=== PATIENT | female | born 1985 | race Caucasian/White ===

== ENCOUNTER 2020-03-08 15:22 | Emergency (ER) | payer OTHER, MEDICAID, SELFPAY ==
[2020-03-08 15:31] VITALS: BP 106/67; PULSE 66; RESP 16; TEMP 36.6; O2SAT 100; BMI 20.9
--- NOTE | 2020-03-08 16:02 | DI.CT.S_ITS ---
PROCEDURE: CT HEAD/BRAIN WO CON INDICATIONS: Reported history of micro bleeds with headache. TECHNIQUE: Noncontrast 4.5 mm thick angled axial sections acquired from the foramen magnum to the vertex, with coronal and sagittal reformats. For radiation dose reduction, the following was used: automated exposure control, adjustment of mA and/or kV according to patient size. COMPARISON: None. FINDINGS: Image quality: Excellent. CSF spaces: Basal cisterns are patent. No extra-axial fluid collections. Ventricles are normal in size and shape. Brain: No midline shift. No intracranial masses or hemorrhage. Storey-white matter interface is normal. Skull and face: Calvarium and visualized facial bones are intact, without suspicious lesions. Sinuses: Visualized sinuses and mastoids are clear. IMPRESSION: Normal head CT. Dictated by: Juanjose Meneses M.D. on 03/08/2020 at 16:49 Approved by: Juanjose Meneses M.D. on 03/08/2020 at 16:49
--- NOTE | 2020-03-08 16:19 | ED.NEUROSD ---
HPI - Neuro Symptoms/Deficit General Chief Complaint: Neuro Symptoms/Deficit Stated Complaint: dizzy, headache, pain in arms, numbness in hands Time Seen by Provider: 03/08/20 16:01 Source: patient Mode of arrival: Ambulatory Limitations: no limitations History of Present Illness HPI Narrative: 34-year-old female here for evaluation of multiple symptoms to include dizziness and headache and pain and tingling in her arms and numbness in her hands. She states she has sustained 2 concussions in the past and she feels like that she is having tenderness over 1 of the areas above her left eye were she sustained the concussion. She states that the headache is intermittent. She has had symptoms like this in the past. Has been told that it was a post concussive syndrome. She also states she has been told that she had ?micro bleeds ?in her head after having a MRI. She could not describe this any further than that. She is not on blood thinners. Has not tried any for symptoms prior to arrival On Anticoagulants: No Related Data Allergies Allergy/AdvReac Type Severity Reaction Status Date / Time No Known Drug Allergies Allergy Verified 03/08/20 15:41 Review of Systems Constitutional Constitutional: Reports fatigue, Denies fever(s), Denies frequent falls and Reports headache(s) Eyes Eyes: Denies change in vision ENT Ears, Nose, Mouth, and Throat: Denies dizziness, Reports headache(s) and Denies sore throat Cardiovascular Cardiovascular: Denies chest pain, Denies syncope and Denies dyspnea Respiratory Respiratory: Denies dyspnea Gastrointestinal Gastrointestinal: Denies abdominal pain, Denies nausea and Denies vomiting Genitourinary Genitourinary: Denies dysuria Genitourinary: Denies dysuria Musculoskeletal Musculoskeletal: Denies arthralgias, Denies myalgias and Reports tingling Integumentary/Breasts Skin/Breast: Denies pruritus and Denies rash Neurologic Neurologic: Reports confusion, Denies dizziness, Denies syncope, Denies frequent falls, Reports headache(s), Denies radicular pain and Reports tingling Psychiatric Psychiatric: Reports confusion Endocrine Endocrine: Reports fatigue Patient History Social History Smoking Status: Current every day smoker Smoking Status: Current every day smoker tobacco type: vaping alcohol intake frequency: holidays/special occasions only Substance Use Type: does not use Exam Initial Vital Signs Initial Vital Signs: Vital Signs Temperature 97.8 F 03/08/20 15:31 Pulse Rate 66 03/08/20 15:31 Respiratory Rate 16 03/08/20 15:31 Blood Pressure 106/67 03/08/20 15:31 Pulse Oximetry 100 03/08/20 15:31 Const General: cooperative, comfortable and well developed Limitations: mental status not altered HENMT Head: normal to inspection and normocephalic Resp Effort & Inspection: normal respiratory effort Auscultation: clear to auscultation bilaterally Cardio Rate: regular rate Rhythm: regular rhythm GI Inspection: non-distended Palpation: soft Skin Lesions: no lesions Rashes: no rashes Neuro General: patient alert, patient awake and patient oriented x3 Cranial Nerves: CN's II-XI intact bilaterally Cognition: normal cognition Speech: speech normal Motor: muscle tone normal throughout Sensory Exam: no sensory deficits noted Extrem General: normal to inspection and capillary refill normal Psych Appearance: grossly normal and well kempt Scores GCS Amaya coma scale eye opening: Spontaneous Prescott coma scale verbal response: Orientated [place] coma scale motor response: Obey commands Prescott coma scale total score: 15 Course Orders Ordered: ED Orders 03/08/20 16:02 CT head/brain wo con Stat Vital Signs Vital signs: Vital Signs - 8 hr 03/08/20 15:31 03/08/20 16:28 03/08/20 16:30 Temperature 97.8 F Pulse Rate 66 57 L 56 L Respiratory Rate 16 Blood Pressure 106/67 100/64 Pulse Oximetry 100 98 98 03/08/20 16:48 03/08/20 17:00 03/08/20 17:30 Temperature Pulse Rate 56 L 57 L 54 L Respiratory Rate Blood Pressure 98/63 96/62 96/62 Pulse Oximetry 100 98 98 MDM - Neuro Symptoms/Deficit Imaging Data CT scan - head: Radiologist's Impression: [address] [address] [address] Scan Report Signed Patient: Brenda Chong [facility]#: [id number] : 1985Acct:[id number] Age/Sex: 34 / FDate of Service: 03/08/20 Loc: ED Accession Number: [id number] Procedure: CT head/brain wo con Ordering Provider: Cheo Pedroza D.O. PROCEDURE: CT HEAD/BRAIN WO CON INDICATIONS: Reported history of micro bleeds with headache. TECHNIQUE: Noncontrast 4.5 mm thick angled axial sections acquired from the foramen magnum to the vertex, with coronal and sagittal reformats. For radiation dose reduction, the following was used: automated exposure control, adjustment of mA and/or kV according to patient size. COMPARISON: None. FINDINGS: Image quality: Excellent. CSF spaces: Basal cisterns are patent. No extra-axial fluid collections. Ventricles are normal in size and shape. Brain: No midline shift. No intracranial masses or hemorrhage. Storey-white matter interface is normal. Skull and face: Calvarium and visualized facial bones are intact, without suspicious lesions. Sinuses: Visualized sinuses and mastoids are clear. IMPRESSION: Normal head CT. Dictated by: Juanjose Meneses M.D. on 03/08/2020 at 16:49 Approved by: Juanjose Meneses M.D. on 03/08/2020 at 16:49 [facility] Narrative Medical decision making narrative: Patient has a unremarkable/nonfocal/normal neurologic exam. Her head CT was negative. She has had these symptoms in the past. Low suspicion for CVA or TIA. I feel we can hold on further workup for now. Patient was given return precautions and follow-up instructions. She expressed understanding and agreement. Discharge Plan Departure Patient Disposition: Home Clinical Impression: Headache Qualifiers: Headache type: unspecified Headache chronicity pattern: unspecified pattern Intractability: not intractable Qualified Code(s): R51.9 - Headache, unspecified Discharge Date/Time: 03/08/20 17:44 Instructions: DI for Postconcussion Syndrome Activity Restrictions/Additional Instructions: Recommend that tomorrow you contact your primary provider for follow-up. You can also contact the health human resources file clerk [phone] to help establish a primary doctor in this area if you choose. Continue all of your medications as directed. Return to the emergency department for any new or worsening symptoms
[2020-03-08 16:28] VITALS: PULSE 57; O2SAT 98
[2020-03-08 16:30] VITALS: BP 100/64; PULSE 56; O2SAT 98
[2020-03-08 16:48] VITALS: BP 98/63; PULSE 56; O2SAT 100
[2020-03-08 17:00] VITALS: BP 96/62; PULSE 57; O2SAT 98
[2020-03-08 17:30] VITALS: BP 96/62; PULSE 54; O2SAT 98
== END 2020-03-08 17:44 | disposition home or self-care (01) ==
PROVIDERS: Emergency Provider Emergency Medicine
DX: R51.9 Headache, unspecified (principal); R20.0 Anesthesia of skin; R42 Dizziness and giddiness
CPT/HCPCS: 70450; 99281; 99284

== ENCOUNTER 2020-04-04 09:57 | Emergency (ER) | payer OTHER, MEDICAID, SELFPAY ==
[2020-04-04 10:10] VITALS: BP 93/55; PULSE 69; RESP 14; TEMP 36.7; O2SAT 100; BMI 21.5
[2020-04-04 10:38] LABS: Appearance Urine UA SL CLOUDY; Bacteria Urine None Seen; Bilirubin Urine UA NEGATIVE (NEGATIVE); Color Urine UA YELLOW; Glucose Urine UA NEGATIVE (Negative); Ketones Urine UA NEGATIVE (NEGATIVE); Leukocyte Esterase Urine UA NEGATIVE (NEGATIVE); Nitrite Urine UA NEGATIVE (Negative); Occult Blood Urine UA NEGATIVE (Negative); Protein Urine UA NEGATIVE (Negative); RBC Urine None Seen (0-5/HPF); Specific Gravity Urine UA 1.015 (1.000-1.035); Urobilinogen Urine UA 0.2 E.U./dL (0.2); WBC Urine None Seen (0-5/HPF)
[2020-04-04 10:51] LABS: Amorphous Sediment Urine 3+; Culture Indicated Urine Cult Not Indicated; Squamous Epithelial Cell Urine 5-10 /HPF (0-5/HPF)
[2020-04-04 12:44] VITALS: PULSE 63; O2SAT 99
[2020-04-04 12:45] VITALS: BP 98/63; PULSE 71; RESP 16; O2SAT 98
--- NOTE | 2020-04-04 12:52 | PC.NURSE ---
pt states she feels as if she is out of body watching herself with daily activities and easily distracted hard to stay focused on the moment Pt also c/o generalized body aches tender to the touch
[2020-04-04 14:10] LABS: Add Manual Diff / Slide Review NO; Basophils Absolute Auto 0 /uL (0-100); Basophils Percent Auto 0.4 % (0-2); Eosinophils Absolute Auto 0 /uL (0-450); Eosinophils Percent Auto 0.9 % (2-4); Hematocrit 39.6 % (36-46); Hemoglobin 13.1 g/dL (12.0-16.0); Lymphocytes Absolute Auto 1700 /uL (1100-4500); Lymphocytes Percent Auto 32.1 % (25-40); Mean Corpuscular HGB Conc 33.2 % (30-36); Mean Corpuscular Hemoglobin 30.5 PG (26-34); Mean Corpuscular Volume 91.9 fL (80-100); Monocytes Absolute Auto 500 /uL (0-900); Monocytes Percent Auto 8.6 % (3-14); Neutrophils Absolute Auto 3100 /uL (1500-7000); Platelet Count 179 X10^3/uL (150-400); Red Blood Cell Count 4.31 X10^6/uL (4.0-5.2); Red Cell Distribution Width 13.2 % (11.6-14.8); White Blood Cell Count 5.4 X10^3/uL (4.5-11.0)
[2020-04-04 14:11] LABS: Pregnancy Test Urine Negative (Negative)
[2020-04-04 14:16] LABS: UR Morphine/Opiate cutoff 300 Negative (Negative); Ur Creatinine Normal (Normal); Ur Specific Gravity Normal (Normal); Urine Amphetamines Negative (Negative); Urine Barbiturates Negative (Negative); Urine Benzodiazepines Negative (Negative); Urine Cocaine Negative (Negative); Urine MDMA Negative (Negative); Urine Methadone Negative (Negative); Urine Methamphetamines Negative (Negative); Urine Oxycodone Negative (Negative); Urine Phencyclidine Negative (Negative); Urine Tetrahydrocannabinol Negative (Negative); Urine Tricyclic Antidepressant Negative (Negative); Urine pH Normal (Normal)
[2020-04-04 14:25] LABS: INR 1.1 (0.9-1.3); Prothrombin Time 13.2 SECONDS (10.1-12.7)
[2020-04-04 14:27] LABS: PTT Partial Thromboplastin Tim 30 SECONDS (26.4-36.2)
[2020-04-04 14:29] LABS: Acetaminophen < 10 ug/mL (10-30); Creatine Kinase 79 U/L (30-135); Salicylate < 1.0 mg/dL (<20)
[2020-04-04 14:30] LABS: Alanine Aminotransferase 17 IU/L (<35); Albumin 4.2 g/dL (3.5-5.0); Albumin Globulin Ratio 1.4 (1.0-2.8); Alkaline Phosphatase 40 U/L (38-126); Aspartate Aminotransferase 23 IU/L (14-36); BUN Creatinine Ratio 26.9 (6-22); Bilirubin Total 1.1 mg/dL (0.2-1.3); Blood Urea Nitrogen 14 mg/dL (7-17); Calcium 9.4 mg/dL (8.4-10.2); Carbon Dioxide 29 mmol/L (22-32); Chloride 105 mmol/L (98-107); Estimated Glomerular Filt Rate > 60.0 mL/min (>60); Ethanol (ETOH) < 10 mg/dL; Globulin 3.1 g/dL (1.7-4.1); Glucose 87 mg/dL (70-100); HEMOLYSIS < 15 (0-50); Magnesium 1.8 mg/dL (1.6-2.3); Potassium 4.1 mmol/L (3.4-5.1); Sodium 139 mmol/L (137-145); Total Protein 7.3 g/dL (6.3-8.2)
[2020-04-04 14:41] LABS: Troponin I < 0.012 ng/mL (0.01-0.034)
[2020-04-04 14:42] VITALS: BP 90/60; PULSE 54; RESP 16; O2SAT 100
[2020-04-04 15:23] LABS: Thyroid Stimulating Hormone 0.586 uIU/mL (0.47-4.68)
--- NOTE | 2020-04-04 16:34 | CM.SWNOTE ---
DRIER OPERATOR HELPER Assessment DRIER OPERATOR HELPER - Boat Camp Operator Assessment DRIER OPERATOR HELPER - Boat Camp Operator Assessment Start: 04/04/20 16:21 Freq: Status: Active Protocol: Document 04/04/20 16:21 SELVIN (Rec: 04/04/20 16:34 SELVIN [id number]) DRIER OPERATOR HELPER/Boat Camp Operator Assessment Time Spent with Patient Start date 04/04/20 Visit Start Time 15:10 End date 04/04/20 Visit End Time 15:50 Total time Care Management spent on 40 patient visit-in minutes Mental Health Screening Include Onset, Duration, Intensity Presenting Problem Patient presents to ED for stated concerns of memory loss and feeling dissociated from herself. Patient reports she has been diagnosed with PTSD before and recognizes that dissociation from self is a symptom of PTSD, but is worried because she does not feel like myself. Precipitating Event(s) Patient reports having been at her place of residence and a housemate noticed that she had been forgetting things more recently and asked if patient was OK. Patient recently moved into transitional housing after experiencing homelessness for two years. Patient reports feeling significantly isolated from family and friend group. Patient Strengths Patient expressive motivation for healing Current Behavioral Health Provider(s) None-referrals provided. Include Facility, Provider, Ph. # Psych. Hx Mental Health and Chemical Patient reports feeling sad Dependency and having PTSD. No substance use concerns reported. Family Hx of Behavioral Abuse None reported. Psychiatric Hospitalizations (date(s)/ None reported. location) Psychosocial information & Support Patient is a 34 y/o female who Systems recently moved into transitional housing after experiencing homelessness for 2 years. Patient reports she is isolated from her friend group and family, but does have supportive friends though the transitional housing program that she is a part of. 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 Legal Concerns Legal Matters - Outstanding Issues None reported. Mental Status Orientation (Person/Place/Time) Oriented x3 Stated Mood OK Affect (Congruent with Mood?) Tearful, flat, congruent with mood. Thought Content - Specify/Describe No hallucinations, obsessions, Obsessions, Delusions, Hallucinations or delusions observed or reported. Thought Processes (Yojunsr-Bixpgfan-Ywue Coherent-goal directed Wfhkxctk-Vvswcuxn-Dslwixfsae- Ueheevqhgbhjrq-Qtwlsgw-Gmhjetejvtfb- Thought Blocking) Speech (Fvioeq-Ulhj-Rddfhhv-Rapid-Soft- Normal Loud-Pressured) Motor (Yawgle-Uiiqbkyjr-Yeal-Other) Normal Insight (Tbsr-Vils-Zfec/Limited) Good Judgement (Chct-Xtdm-Vmin/Limited) Good Impulse Control (Adequate-Impaired) Adequate in assessment. Memory (Wmqdyiajv-Livytd-Hkbhhn, Intact for interview. Patient Impaired-Intact) reports she has been forgetting things and forgetting the tasks she's conducting mid-task. Concentration (Intact-Impaired) Intact Attention (Intact-Impaired) Intact Behavior (Appropriate-Inappropriate) Appropriate Risk Assessment Suicidal Ideation (Plan) No Homicidal Ideation (Plan) No Comment Patient denies SI/HI. Intervention Intervention DRIER OPERATOR HELPER meets with patient. Patient discusses hx of PTSD and feeling not like myself. Patient asks for referral to counseling and DRIER OPERATOR HELPER provides referral to [facility] and provides patient with information on process and how to access the services. Plan RA Plan DRIER OPERATOR HELPER updates ED provider Madhavi Silva, who will continue caring for patient while in ED . LAURA Sprague
[2020-04-04 16:36] VITALS: BP 94/60; PULSE 54; RESP 16; O2SAT 100
[2020-04-04 16:44] VITALS: BP 102/59; PULSE 60; O2SAT 98
--- NOTE | 2020-04-04 17:29 | ED_ITS ---
HPI - Neuro Symptoms/Deficit <ALEC Fernandez - Last Filed: 04/04/20 20:00> General Chief Complaint: Neuro Symptoms/Deficit Stated Complaint: Not feeling right, maybe partly mental Time Seen by Provider: 04/04/20 13:12 Source: patient Mode of arrival: Ambulatory Limitations: no limitations History of Present Illness HPI Narrative: The patient is a 34-year-old female current smoker with history of PTSD, anxiety, costochondritis who presents with a chief complaint of not feeling well for the past several years. She states that she has transient chest pain, feels like she is out of body, disassociated symptoms as well as fatigue and not sleeping well. She denies any fevers, nausea vomiting or diarrhea. She states that she has chest pain when she presses on her chest. She denies any falls or trauma. She states she feels as though her skin hurts that everything hurts at times. She has seen her primary care provider was referred to neurology but is having trouble getting to that appointment due to transit issues. She denies any possibility of , denies any drug or alcohol use, denies any thoughts of hurting herself or anybody else. She wonders if her issues are ?mental related. On Anticoagulants: No Related Data Previous Rx's Medication Instructions Recorded ibuprofen 600 mg PO TID PRN #20 tab 04/04/20 Allergies Allergy/AdvReac Type Severity Reaction Status Date / Time amoxicillin [From Augmentin] Allergy Verified 04/04/20 10:12 azithromycin Allergy Verified 04/04/20 10:12 clavulanic acid Allergy Verified 04/04/20 10:12 [From Augmentin] Review of Systems <ALEC Fernandez - Last Filed: 04/04/20 20:00> Review of Systems Narrative: GENERAL: Denies chills, fatigue, malaise, fever, sweats. HEENT: Denies sinus pain, ear pain, sore throat, difficulty swallowing, dizziness. RESPIRATORY: Denies dyspnea, cough, wheezing, hemoptysis, sputum. CARDIOVASCULAR: See HPI GASTROINTESTINAL: Denies nausea, vomiting, abdominal pain, diarrhea, constipation, melena. : Denies dysuria, frequency, incontinence, hematuria, urinary retention. MUSCULOSKELETAL: denies weakness, joint pain, or bony pain SKIN: Denies rash, skin lesions, or other NEUROLOGIC: Denies weakness, headache, numbness, change in speech, confusion, seizures, incoordination. PSYCHIATRIC: see HPI 12 point review of systems is negative except for those stated above Patient History <Madhavi ALEC Silva - Last Filed: 04/04/20 20:00> Social History Smoking Status: Current every day smoker Smoking Status: Current every day smoker tobacco type: vaping alcohol intake frequency: holidays/special occasions only Substance Use Type: does not use Exam <Madhavi ALEC Silva - Last Filed: 04/04/20 20:00> Narrative Exam Narrative: GENERAL: This is a well-nourished, well-developed patient, in no acute distress HEAD: Atraumatic. Normocephalic. No temporal or scalp tenderness. EYES: Pupils equal round and reactive. Extraocular motions intact. No scleral icterus. No injection or drainage. ENT: Nose without bleeding, purulent drainage or septal hematoma. Throat without erythema, tonsillar hypertrophy or exudate. Uvula midline. Airway patent. NECK: Trachea midline. No JVD or lymphadenopathy. Supple, nontender, no meningeal signs. CARDIOVASCULAR: Regular rate and rhythm RESPIRATORY: Clear to auscultation. Breath sounds equal bilaterally. No wheezes, rales, or rhonchi. No cough. No increased respiratory effort. No accessory muscle use. Pain to palpation of chest wall that is varied. GASTROINTESTINAL: Abdomen soft, non-tender, nondistended. No hepato- splenomegaly, or palpable masses. No guarding. EXTREMITIES: No clubbing, cyanosis, or edema. No joint tenderness, effusion, or edema noted. BACK: Nontender without deformity or crepitance. No flank tenderness. NEURO: AOx3. Teary at times. Interactive. Age appropriate. SKIN: No rash or erythema on visible skin Initial Vital Signs Initial Vital Signs: Vital Signs Temperature 98.1 F 04/04/20 10:10 Pulse Rate 69 04/04/20 10:10 Respiratory Rate 14 04/04/20 10:10 Blood Pressure 93/55 L 04/04/20 10:10 Pulse Oximetry 100 04/04/20 10:10 <Felix Pabon MD - Last Filed: 04/05/20 08:14> Initial Vital Signs Initial Vital Signs: Vital Signs Temperature 98.1 F 04/04/20 10:10 Pulse Rate 69 04/04/20 10:10 Respiratory Rate 14 04/04/20 10:10 Blood Pressure 93/55 L 04/04/20 10:10 Pulse Oximetry 100 04/04/20 10:10 Scores <Madhavi KENJI Silva-BC - Last Filed: 04/04/20 20:00> GCS [place] coma scale eye opening: Spontaneous [place] coma scale verbal response: Orientated [place] coma scale motor response: Obey commands [place] coma scale total score: 15 Course <Madhavi RAJEEV SilvaBC - Last Filed: 04/04/20 20:00> Orders Ordered: ED Orders 04/04/20 13:41 EKG-12 Lead Stat 04/04/20 13:42 Consult to [facility] - Digital Project Manager Urgent 04/04/20 14:02 Acetaminophen Stat Complete Blood Count AUTO DIFF Stat Comprehensive Metabolic Panel Stat Ethanol (ETOH) Stat Magnesium Stat Partial Thromboplastin Time Stat Prothrombin Time INR Stat Salicylate Stat Thyroid Stimulating Hormone Stat Troponin & CK Cardiac Panel Stat Vital Signs Vital signs: Vital Signs - 8 hr 04/04/20 12:44 04/04/20 12:45 04/04/20 14:42 Pulse Rate 63 71 54 L Respiratory Rate 16 16 Blood Pressure 98/63 90/60 Pulse Oximetry 99 98 100 04/04/20 16:36 04/04/20 16:44 Pulse Rate 54 L 60 Respiratory Rate 16 Blood Pressure 94/60 102/59 L Pulse Oximetry 100 98 <Felix Pabon MD - Last Filed: 04/05/20 08:14> Orders Ordered: ED Orders 04/04/20 13:41 EKG-12 Lead Stat 04/04/20 13:42 Consult to [facility] Digital Project Manager Urgent 04/04/20 14:02 Acetaminophen Stat Complete Blood Count AUTO DIFF Stat Comprehensive Metabolic Panel Stat Ethanol (ETOH) Stat Magnesium Stat Partial Thromboplastin Time Stat Prothrombin Time INR Stat Salicylate Stat Thyroid Stimulating Hormone Stat Troponin & CK Cardiac Panel Stat Vital Signs Vital signs: Vital Signs - 8 hr 04/04/20 12:44 04/04/20 12:45 04/04/20 14:42 Pulse Rate 63 71 54 L Respiratory Rate 16 16 Blood Pressure 98/63 90/60 Pulse Oximetry 99 98 100 04/04/20 16:36 04/04/20 16:44 Pulse Rate 54 L 60 Respiratory Rate 16 Blood Pressure 94/60 102/59 L Pulse Oximetry 100 98 MDM - Neuro Symptoms/Deficit <RAQUEL FernandezP- - Last Filed: 04/04/20 20:00> Lab Data Attestation: I reviewed the patient's lab results. Result diagrams: 04/04/20 14:02 04/04/20 14:02 Labs: Lab Results 04/04/20 04/04/20 04/04/20 Range/Units 10:17 10:17 10:17 WBC (4.5-11.0) X10^3/uL RBC (4.0-5.2) X10^6/uL Hgb (12.0-16.0) g/dL Hct (36-46) % MCV (80-100) fL MCH (26-34) PG MCHC (30-36) % RDW (11.6-14.8) % Plt Count (150-400) X10^3/uL Neut % (Auto) (50-75) % Lymph % (Auto) (25-40) % [place] % (Auto) (3-14) % Eos % (Auto) (2-4) % Baso % (Auto) (0-2) % Neut # (Auto) (7434-9099) /uL Lymph # (Auto) (2863-4892) /uL [place] # (Auto) (0-900) /uL Eos # (Auto) (0-450) /uL Baso # (Auto) (0-100) /uL PT (10.1-12.7) SECONDS INR (0.9-1.3) APTT (26.4-36.2) SECONDS Sodium (137-145) mmol/L Potassium (3.4-5.1) mmol/L Chloride (98-107) mmol/L Carbon Dioxide (22-32) mmol/L BUN (7-17) mg/dL Creatinine (0.52-1.04) mg/dL Estimated GFR (>60) mL/min BUN/Creatinine Ratio (6-22) Glucose (70-100) mg/dL Calcium (8.4-10.2) mg/dL Magnesium (1.6-2.3) mg/dL Total Bilirubin (0.2-1.3) mg/dL AST (14-36) IU/L ALT (<35) IU/L Alkaline Phosphatase (38-126) U/L Total Creatine Kinase (30-135) U/L CK-MB (CK-2) CK-MB (CK-2) Rel Index Troponin I (0.01-0.034) ng/mL Total Protein (6.3-8.2) g/dL Albumin (3.5-5.0) g/dL Globulin (1.7-4.1) g/dL Albumin/Globulin Ratio (1.0-2.8) TSH (0.47-4.68) uIU/mL Urine Color Yellow Urine Appearance Sl cloudy Urine pH 7.0 (4.5-8.0) Ur Specific Home 1.015 (1.000-1.035) Urine Protein Negative (Negative) Urine Glucose (UA) Negative (Negative) g/dL Urine Ketones Negative (NEGATIVE) Urine Occult Blood Negative (Negative) Urine Nitrate Negative (Negative) Urine Bilirubin Negative (NEGATIVE) Urine Urobilinogen 0.2 (0.2) E.U./dL Ur Leukocyte Esterase Negative (NEGATIVE) Urine RBC None seen (0-5/HPF) Urine WBC None seen (0-5/HPF) Ur Squamous Epith Cells 5-10 /hpf H (0-5/HPF) Amorphous Sediment 3+ Urine Bacteria None seen (None) Ur Culture Indicated? Cult not indicated Urine Test Negative (Negative) Salicylates (<20) mg/dL U Opiates 300ng/mL cut Negative (Negative) Ur Oxycodone Screen Negative (Negative) Urine Methadone Screen Negative (Negative) Acetaminophen (10-30) ug/mL Ur Barbiturates Screen Negative (Negative) U Tricyclic Antidepress Negative (Negative) Ur Phencyclidine Scrn Negative (Negative) Ur Amphetamines Screen Negative (Negative) U Methamphetamines Scrn Negative (Negative) Ur MDMA Scrn (Ecstasy) Negative (Negative) U Benzodiazepines Scrn Negative (Negative) Urine Cocaine Screen Negative (Negative) U Marijuana (THC) Screen Negative (Negative) Ethyl Alcohol ( - 10) mg/dL 04/04/20 04/04/20 04/04/20 Range/Units 14:02 14:02 14:02 WBC 5.4 (4.5-11.0) X10^3/uL RBC 4.31 (4.0-5.2) X10^6/uL Hgb 13.1 (12.0-16.0) g/dL Hct 39.6 (36-46) % MCV 91.9 (80-100) fL MCH 30.5 (26-34) PG MCHC 33.2 (30-36) % RDW 13.2 (11.6-14.8) % Plt Count 179 (150-400) X10^3/uL Neut % (Auto) 58.0 (50-75) % Lymph % (Auto) 32.1 (25-40) % [place] % (Auto) 8.6 (3-14) % Eos % (Auto) 0.9 L (2-4) % Baso % (Auto) 0.4 (0-2) % Neut # (Auto) 3100 (2748-5921) /uL Lymph # (Auto) 1700 (6594-9452) /uL [place] # (Auto) 500 (0-900) /uL Eos # (Auto) 0 (0-450) /uL Baso # (Auto) 0 (0-100) /uL PT 13.2 H (10.1-12.7) SECONDS INR 1.1 (0.9-1.3) APTT 30 (26.4-36.2) SECONDS Sodium (137-145) mmol/L Potassium (3.4-5.1) mmol/L Chloride (98-107) mmol/L Carbon Dioxide (22-32) mmol/L BUN (7-17) mg/dL Creatinine (0.52-1.04) mg/dL Estimated GFR (>60) mL/min BUN/Creatinine Ratio (6-22) Glucose (70-100) mg/dL Calcium (8.4-10.2) mg/dL Magnesium (1.6-2.3) mg/dL Total Bilirubin (0.2-1.3) mg/dL AST (14-36) IU/L ALT (<35) IU/L Alkaline Phosphatase (38-126) U/L Total Creatine Kinase 79 (30-135) U/L CK-MB (CK-2) TNP CK-MB (CK-2) Rel Index TNP Troponin I < 0.012 (0.01-0.034) ng/mL Total Protein (6.3-8.2) g/dL Albumin (3.5-5.0) g/dL Globulin (1.7-4.1) g/dL Albumin/Globulin Ratio (1.0-2.8) TSH (0.47-4.68) uIU/mL Urine Color Urine Appearance Urine pH (4.5-8.0) Ur Specific Home (1.000-1.035) Urine Protein (Negative) Urine Glucose (UA) (Negative) g/dL Urine Ketones (NEGATIVE) Urine Occult Blood (Negative) Urine Nitrate (Negative) Urine Bilirubin (NEGATIVE) Urine Urobilinogen (0.2) E.U./dL Ur Leukocyte Esterase (NEGATIVE) Urine RBC (0-5/HPF) Urine WBC (0-5/HPF) Ur Squamous Epith Cells (0-5/HPF) Amorphous Sediment Urine Bacteria (None) Ur Culture Indicated? Urine Test (Negative) Salicylates < 1.0 (<20) mg/dL U Opiates 300ng/mL cut (Negative) Ur Oxycodone Screen (Negative) Urine Methadone Screen (Negative) Acetaminophen < 10 L (10-30) ug/mL Ur Barbiturates Screen (Negative) U Tricyclic Antidepress (Negative) Ur Phencyclidine Scrn (Negative) Ur Amphetamines Screen (Negative) U Methamphetamines Scrn (Negative) Ur MDMA Scrn (Ecstasy) (Negative) U Benzodiazepines Scrn (Negative) Urine Cocaine Screen (Negative) U Marijuana (THC) Screen (Negative) Ethyl Alcohol ( - 10) mg/dL 04/04/20 04/04/20 Range/Units 14:02 14:02 WBC (4.5-11.0) X10^3/uL RBC (4.0-5.2) X10^6/uL Hgb (12.0-16.0) g/dL Hct (36-46) % MCV (80-100) fL MCH (26-34) PG MCHC (30-36) % RDW (11.6-14.8) % Plt Count (150-400) X10^3/uL Neut % (Auto) (50-75) % Lymph % (Auto) (25-40) % [place] % (Auto) (3-14) % Eos % (Auto) (2-4) % Baso % (Auto) (0-2) % Neut # (Auto) (8177-7845) /uL Lymph # (Auto) (3743-4453) /uL [place] # (Auto) (0-900) /uL Eos # (Auto) (0-450) /uL Baso # (Auto) (0-100) /uL PT (10.1-12.7) SECONDS INR (0.9-1.3) APTT (26.4-36.2) SECONDS Sodium 139 (137-145) mmol/L Potassium 4.1 (3.4-5.1) mmol/L Chloride 105 (98-107) mmol/L Carbon Dioxide 29 (22-32) mmol/L BUN 14 (7-17) mg/dL Creatinine 0.52 (0.52-1.04) mg/dL Estimated GFR > 60.0 (>60) mL/min BUN/Creatinine Ratio 26.9 H (6-22) Glucose 87 (70-100) mg/dL Calcium 9.4 (8.4-10.2) mg/dL Magnesium 1.8 (1.6-2.3) mg/dL Total Bilirubin 1.1 (0.2-1.3) mg/dL AST 23 (14-36) IU/L ALT 17 (<35) IU/L Alkaline Phosphatase 40 (38-126) U/L Total Creatine Kinase (30-135) U/L CK-MB (CK-2) CK-MB (CK-2) Rel Index Troponin I (0.01-0.034) ng/mL Total Protein 7.3 (6.3-8.2) g/dL Albumin 4.2 (3.5-5.0) g/dL Globulin 3.1 (1.7-4.1) g/dL Albumin/Globulin Ratio 1.4 (1.0-2.8) TSH 0.586 (0.47-4.68) uIU/mL Urine Color Urine Appearance Urine pH (4.5-8.0) Ur Specific Home (1.000-1.035) Urine Protein (Negative) Urine Glucose (UA) (Negative) g/dL Urine Ketones (NEGATIVE) Urine Occult Blood (Negative) Urine Nitrate (Negative) Urine Bilirubin (NEGATIVE) Urine Urobilinogen (0.2) E.U./dL Ur Leukocyte Esterase (NEGATIVE) Urine RBC (0-5/HPF) Urine WBC (0-5/HPF) Ur Squamous Epith Cells (0-5/HPF) Amorphous Sediment Urine Bacteria (None) Ur Culture Indicated? Urine Test (Negative) Salicylates (<20) mg/dL U Opiates 300ng/mL cut (Negative) Ur Oxycodone Screen (Negative) Urine Methadone Screen (Negative) Acetaminophen (10-30) ug/mL Ur Barbiturates Screen (Negative) U Tricyclic Antidepress (Negative) Ur Phencyclidine Scrn (Negative) Ur Amphetamines Screen (Negative) U Methamphetamines Scrn (Negative) Ur MDMA Scrn (Ecstasy) (Negative) U Benzodiazepines Scrn (Negative) Urine Cocaine Screen (Negative) U Marijuana (THC) Screen (Negative) Ethyl Alcohol < 10 ( - 10) mg/dL ECG Data Attestation: I personally reviewed and interpreted this ECG as follows: Interpretation: Sinus bradycardia. Ventricular rate 52. P.r. interval 178. QRS 82. Viewed by Dr Pabon MDM Narrative Medical decision making narrative: The patient is a 34-year-old female who presents with a chief complaint of multiple complaints including fatigue, not feeling well, chest pain with pressure fatigue waking up early. These complains of an ongoing for the last several years, worse recently. Her EKG has no acute findings, initial troponin is negative. Hypothyroid was consider, rule out TSH. Anemia is consider, ruled out with CBC. Her electrolytes are grossly within no rmal limits. I discussed at length the importance of following up with primary care provider, given her coordination issues as well as concerned about out of body experiences, Isaak SANCHEZ plan to evaluate patient and gave her resources including [facility] as well as [employer] phone number. She is safe to go home, declines an x-ray given that she believe she has a costochondritis exacerbation. However she is oxygenating well, no cough etcetera.. Willing to give her a continuation of ibuprofen. Discussed at length coming to the ER for any acute concerns as well as primary care her provider. Patient has no questions or concerns upon discharge and states understanding of return precautions as well as follow-up care. <Felix Pabon MD - Last Filed: 04/05/20 08:14> Lab Data Labs: Lab Results 04/04/20 04/04/20 04/04/20 Range/Units 10:17 10:17 10:17 WBC (4.5-11.0) X10^3/uL RBC (4.0-5.2) X10^6/uL Hgb (12.0-16.0) g/dL Hct (36-46) % MCV (80-100) fL MCH (26-34) PG MCHC (30-36) % RDW (11.6-14.8) % Plt Count (150-400) X10^3/uL Neut % (Auto) (50-75) % Lymph % (Auto) (25-40) % [place] % (Auto) (3-14) % Eos % (Auto) (2-4) % Baso % (Auto) (0-2) % Neut # (Auto) (7522-0540) /uL Lymph # (Auto) (1410-1200) /uL [place] # (Auto) (0-900) /uL Eos # (Auto) (0-450) /uL Baso # (Auto) (0-100) /uL PT (10.1-12.7) SECONDS INR (0.9-1.3) APTT (26.4-36.2) SECONDS Sodium (137-145) mmol/L Potassium (3.4-5.1) mmol/L Chloride (98-107) mmol/L Carbon Dioxide (22-32) mmol/L BUN (7-17) mg/dL Creatinine (0.52-1.04) mg/dL Estimated GFR (>60) mL/min BUN/Creatinine Ratio (6-22) Glucose (70-100) mg/dL Calcium (8.4-10.2) mg/dL Magnesium (1.6-2.3) mg/dL Total Bilirubin (0.2-1.3) mg/dL AST (14-36) IU/L ALT (<35) IU/L Alkaline Phosphatase (38-126) U/L Total Creatine Kinase (30-135) U/L CK-MB (CK-2) CK-MB (CK-2) Rel Index Troponin I (0.01-0.034) ng/mL Total Protein (6.3-8.2) g/dL Albumin (3.5-5.0) g/dL Globulin (1.7-4.1) g/dL Albumin/Globulin Ratio (1.0-2.8) TSH (0.47-4.68) uIU/mL Urine Color Yellow Urine Appearance Sl cloudy Urine pH 7.0 (4.5-8.0) Ur Specific Home 1.015 (1.000-1.035) Urine Protein Negative (Negative) Urine Glucose (UA) Negative (Negative) g/dL Urine Ketones Negative (NEGATIVE) Urine Occult Blood Negative (Negative) Urine Nitrate Negative (Negative) Urine Bilirubin Negative (NEGATIVE) Urine Urobilinogen 0.2 (0.2) E.U./dL Ur Leukocyte Esterase Negative (NEGATIVE) Urine RBC None seen (0-5/HPF) Urine WBC None seen (0-5/HPF) Ur Squamous Epith Cells 5-10 /hpf H (0-5/HPF) Amorphous Sediment 3+ Urine Bacteria None seen (None) Ur Culture Indicated? Cult not indicated Urine Test Negative (Negative) Salicylates (<20) mg/dL U Opiates 300ng/mL cut Negative (Negative) Ur Oxycodone Screen Negative (Negative) Urine Methadone Screen Negative (Negative) Acetaminophen (10-30) ug/mL Ur Barbiturates Screen Negative (Negative) U Tricyclic Antidepress Negative (Negative) Ur Phencyclidine Scrn Negative (Negative) Ur Amphetamines Screen Negative (Negative) U Methamphetamines Scrn Negative (Negative) Ur MDMA Scrn (Ecstasy) Negative (Negative) U Benzodiazepines Scrn Negative (Negative) Urine Cocaine Screen Negative (Negative) U Marijuana (THC) Screen Negative (Negative) Ethyl Alcohol ( - 10) mg/dL 04/04/20 04/04/20 04/04/20 Range/Units 14:02 14:02 14:02 WBC 5.4 (4.5-11.0) X10^3/uL RBC 4.31 (4.0-5.2) X10^6/uL Hgb 13.1 (12.0-16.0) g/dL Hct 39.6 (36-46) % MCV 91.9 (80-100) fL MCH 30.5 (26-34) PG MCHC 33.2 (30-36) % RDW 13.2 (11.6-14.8) % Plt Count 179 (150-400) X10^3/uL Neut % (Auto) 58.0 (50-75) % Lymph % (Auto) 32.1 (25-40) % [place] % (Auto) 8.6 (3-14) % Eos % (Auto) 0.9 L (2-4) % Baso % (Auto) 0.4 (0-2) % Neut # (Auto) 3100 (4099-1088) /uL Lymph # (Auto) 1700 (2825-3089) /uL [place] # (Auto) 500 (0-900) /uL Eos # (Auto) 0 (0-450) /uL Baso # (Auto) 0 (0-100) /uL PT 13.2 H (10.1-12.7) SECONDS INR 1.1 (0.9-1.3) APTT 30 (26.4-36.2) SECONDS Sodium (137-145) mmol/L Potassium (3.4-5.1) mmol/L Chloride (98-107) mmol/L Carbon Dioxide (22-32) mmol/L BUN (7-17) mg/dL Creatinine (0.52-1.04) mg/dL Estimated GFR (>60) mL/min BUN/Creatinine Ratio (6-22) Glucose (70-100) mg/dL Calcium (8.4-10.2) mg/dL Magnesium (1.6-2.3) mg/dL Total Bilirubin (0.2-1.3) mg/dL AST (14-36) IU/L ALT (<35) IU/L Alkaline Phosphatase (38-126) U/L Total Creatine Kinase 79 (30-135) U/L CK-MB (CK-2) TNP CK-MB (CK-2) Rel Index TNP Troponin I < 0.012 (0.01-0.034) ng/mL Total Protein (6.3-8.2) g/dL Albumin (3.5-5.0) g/dL Globulin (1.7-4.1) g/dL Albumin/Globulin Ratio (1.0-2.8) TSH (0.47-4.68) uIU/mL Urine Color Urine Appearance Urine pH (4.5-8.0) Ur Specific Home (1.000-1.035) Urine Protein (Negative) Urine Glucose (UA) (Negative) g/dL Urine Ketones (NEGATIVE) Urine Occult Blood (Negative) Urine Nitrate (Negative) Urine Bilirubin (NEGATIVE) Urine Urobilinogen (0.2) E.U./dL Ur Leukocyte Esterase (NEGATIVE) Urine RBC (0-5/HPF) Urine WBC (0-5/HPF) Ur Squamous Epith Cells (0-5/HPF) Amorphous Sediment Urine Bacteria (None) Ur Culture Indicated? Urine Test (Negative) Salicylates < 1.0 (<20) mg/dL U Opiates 300ng/mL cut (Negative) Ur Oxycodone Screen (Negative) Urine Methadone Screen (Negative) Acetaminophen < 10 L (10-30) ug/mL Ur Barbiturates Screen (Negative) U Tricyclic Antidepress (Negative) Ur Phencyclidine Scrn (Negative) Ur Amphetamines Screen (Negative) U Methamphetamines Scrn (Negative) Ur MDMA Scrn (Ecstasy) (Negative) U Benzodiazepines Scrn (Negative) Urine Cocaine Screen (Negative) U Marijuana (THC) Screen (Negative) Ethyl Alcohol ( - 10) mg/dL 04/04/20 04/04/20 Range/Units 14:02 14:02 WBC (4.5-11.0) X10^3/uL RBC (4.0-5.2) X10^6/uL Hgb (12.0-16.0) g/dL Hct (36-46) % MCV (80-100) fL MCH (26-34) PG MCHC (30-36) % RDW (11.6-14.8) % Plt Count (150-400) X10^3/uL Neut % (Auto) (50-75) % Lymph % (Auto) (25-40) % [place] % (Auto) (3-14) % Eos % (Auto) (2-4) % Baso % (Auto) (0-2) % Neut # (Auto) (4546-1409) /uL Lymph # (Auto) (6383-9732) /uL [place] # (Auto) (0-900) /uL Eos # (Auto) (0-450) /uL Baso # (Auto) (0-100) /uL PT (10.1-12.7) SECONDS INR (0.9-1.3) APTT (26.4-36.2) SECONDS Sodium 139 (137-145) mmol/L Potassium 4.1 (3.4-5.1) mmol/L Chloride 105 (98-107) mmol/L Carbon Dioxide 29 (22-32) mmol/L BUN 14 (7-17) mg/dL Creatinine 0.52 (0.52-1.04) mg/dL Estimated GFR > 60.0 (>60) mL/min BUN/Creatinine Ratio 26.9 H (6-22) Glucose 87 (70-100) mg/dL Calcium 9.4 (8.4-10.2) mg/dL Magnesium 1.8 (1.6-2.3) mg/dL Total Bilirubin 1.1 (0.2-1.3) mg/dL AST 23 (14-36) IU/L ALT 17 (<35) IU/L Alkaline Phosphatase 40 (38-126) U/L Total Creatine Kinase (30-135) U/L CK-MB (CK-2) CK-MB (CK-2) Rel Index Troponin I (0.01-0.034) ng/mL Total Protein 7.3 (6.3-8.2) g/dL Albumin 4.2 (3.5-5.0) g/dL Globulin 3.1 (1.7-4.1) g/dL Albumin/Globulin Ratio 1.4 (1.0-2.8) TSH 0.586 (0.47-4.68) uIU/mL Urine Color Urine Appearance Urine pH (4.5-8.0) Ur Specific Home (1.000-1.035) Urine Protein (Negative) Urine Glucose (UA) (Negative) g/dL Urine Ketones (NEGATIVE) Urine Occult Blood (Negative) Urine Nitrate (Negative) Urine Bilirubin (NEGATIVE) Urine Urobilinogen (0.2) E.U./dL Ur Leukocyte Esterase (NEGATIVE) Urine RBC (0-5/HPF) Urine WBC (0-5/HPF) Ur Squamous Epith Cells (0-5/HPF) Amorphous Sediment Urine Bacteria (None) Ur Culture Indicated? Urine Test (Negative) Salicylates (<20) mg/dL U Opiates 300ng/mL cut (Negative) Ur Oxycodone Screen (Negative) Urine Methadone Screen (Negative) Acetaminophen (10-30) ug/mL Ur Barbiturates Screen (Negative) U Tricyclic Antidepress (Negative) Ur Phencyclidine Scrn (Negative) Ur Amphetamines Screen (Negative) U Methamphetamines Scrn (Negative) Ur MDMA Scrn (Ecstasy) (Negative) U Benzodiazepines Scrn (Negative) Urine Cocaine Screen (Negative) U Marijuana (THC) Screen (Negative) Ethyl Alcohol < 10 ( - 10) mg/dL Discharge Plan Departure Patient Disposition: Home Clinical Impression: Acute costochondritis, Chest pain, atypical Fatigue Qualifiers: Fatigue type: unspecified Qualified Code(s): R53.83 - Other fatigue Discharge Date/Time: 04/04/20 16:44 Instructions: DI for Atypical Chest Pain, DI for Costochondritis, DI for Fat igue Activity Restrictions/Additional Instructions: Thank you for trusting us with your care today. As discussed, please follow-up with the [facility], your primary care provider and the resources provided by our social services director. Our social services director line is [phone] I sent a prescription of ibuprofen to [facility]. This is an NSAID. Do not combine it with other NSAIDs such as Aleve. I suggest taking it with some food, as it can irritate your stomach. Overall your lab work came back well today. Please come back emergency department for any acute concerns Prescriptions: New ibuprofen 600 mg tablet 600 mg PO TID PRN (Reason: pain) Qty: 20 RF: 0 Stand Alone Forms: Work Release Note <Felix Pabon MD - Last Filed: 04/05/20 08:14> [facility] I was immediately available in the department for consultation. This documentation has been reviewed and I agree with assessment and plan. Supervised by Felix Pabon MD
== END 2020-04-04 16:44 | disposition home or self-care (01) ==
PROVIDERS: Emergency Medicine; Emergency Provider Nurse Practitioner Family
DX: M94.0 Chondrocostal junction syndrome [Tietze] (principal); R07.89 Other chest pain; R53.83 Other fatigue
CPT/HCPCS: 36415; 80053; 80305; 80320; 80329; 81001; 81025; 82550; 83735; 84443; 84484; 85025; 85610; 85730; 93005; 99283; 99284; G0480

== ENCOUNTER → 2020-07-11 07:25 | Outpatient (CLI) | payer OTHER, MEDICAID, SELFPAY | PROVIDERS: Visit Provider Nurse Practitioner Family | DX: N34.3 Urethral syndrome, unspecified (principal) | CPT/HCPCS: 81002; 81025; 87077; 87086; 87186 ==

== ENCOUNTER → 2020-08-21 14:48 | Outpatient (CLI) | payer OTHER, MEDICAID, SELFPAY ==
[2020-08-21] MEDS: COVID-19 VACC #1, MRNA(MOD) 100 MCG/0.5 ML VIAL IM (15:01)
== END ==
PROVIDERS: Visit Provider Internal Medicine
DX: Z23 Encounter for immunization (principal)
CPT/HCPCS: 0011A; 91301

== ENCOUNTER 2020-08-31 18:41 | Emergency (ER) | payer OTHER, MEDICAID, SELFPAY ==
[2020-08-31 19:08] VITALS: BP 100/66; PULSE 69; RESP 18; TEMP 37.1; O2SAT 98; BMI 21.5
--- NOTE | 2020-08-31 19:59 | PC.NURSE ---
Pt state has history of thrombocytopenia, states went to walk in clinic for new joint pain and headache, states the walk in clinic thought she had petechiae on her upper thighs. Patient has multiple tiny light red raised bumps on bilateral thigh. states the joint pain in gradually getting worse.
[2020-08-31 20:06] LABS: Add Manual Diff / Slide Review NO; Basophils Absolute Auto 0 /uL (0-100); Basophils Percent Auto 0.6 % (0-2); Eosinophils Absolute Auto 100 /uL (0-450); Eosinophils Percent Auto 2.8 % (2-4); Hematocrit 39.6 % (36-46); Lymphocytes Absolute Auto 1600 /uL (1100-4500); Lymphocytes Percent Auto 35.2 % (25-40); Mean Corpuscular HGB Conc 32.7 % (30-36); Mean Corpuscular Volume 91.6 fL (80-100); Monocytes Absolute Auto 500 /uL (0-900); Monocytes Percent Auto 10.5 % (3-14); Neutrophils Absolute Auto 2300 /uL (1500-7000); Neutrophils Percent Auto 50.9 % (50-75); Platelet Count 169 X10^3/uL (150-400); Red Blood Cell Count 4.33 X10^6/uL (4.0-5.2); Red Cell Distribution Width 12.7 % (11.6-14.8); White Blood Cell Count 4.5 X10^3/uL (4.5-11.0)
[2020-08-31 20:10] LABS: Alanine Aminotransferase 15 IU/L (<35); Albumin 4.6 g/dL (3.5-5.0); Albumin Globulin Ratio 1.5 (1.0-2.8); Alkaline Phosphatase 50 U/L (38-126); Aspartate Aminotransferase 25 IU/L (14-36); BUN Creatinine Ratio 24.5 (6-22); Bilirubin Total 0.7 mg/dL (0.2-1.3); Blood Urea Nitrogen 12 mg/dL (7-17); Calcium 9.7 mg/dL (8.4-10.2); Carbon Dioxide 28 mmol/L (22-32); Chloride 103 mmol/L (98-107); Estimated Glomerular Filt Rate > 60.0 mL/min (>60); Glucose 78 mg/dL (70-100); HEMOLYSIS < 15 (0-50); Potassium 3.7 mmol/L (3.4-5.1); Sodium 139 mmol/L (137-145); Total Protein 7.6 g/dL (6.3-8.2)
--- NOTE | 2020-08-31 20:47 | ED_ITS ---
HPI - Headache General Chief Complaint: Headache Stated Complaint: joint pain, head aches, causing eye pain Time Seen by Provider: 08/31/20 20:47 Source: patient Mode of arrival: Ambulatory Limitations: no limitations History of Present Illness HPI Narrative: This is a 34-year-old patient who comes to emergency department sent from the walk-in clinic. She was told that they were concerned that she had petechiae on her legs. She has a history of ITP and she was sent here for labs as are unable to obtain them quickly. Patient has been having some headaches, some joint pain and some eye discomfort. She states that is not her main concern today. She does not wish to really go through evaluation for these concerns. Her main concern was that she was sent for evaluation for possible ATP or low platelets. Patient states that she has not required plasmapheresis or steroids in the past. She does not believe she has required any specific treatment that she is able to relay. She denies any other current concerns. Patient is a little bit tearful, she states that this is not her favorite place to me she does not really wish to be spending her day here in the emergency department. She does not have any other concerns currently. Related Data Previous Rx's Medication Instructions Recorded ibuprofen 600 mg PO TID PRN #20 tab 04/04/20 fluconazole 150 mg tablet 150 mg PO Q3D #2 tab 07/11/20 Allergies Allergy/AdvReac Type Severity Reaction Status Date / Time amoxicillin [From Augmentin] Allergy Verified 08/09/20 12:38 azithromycin Allergy Verified 08/09/20 12:38 clavulanic acid Allergy Verified 08/09/20 12:38 [From Augmentin] Review of Systems Review of Systems ROS Unobtainable: All systems reviewed & are unremarkable except as noted in HPI and below Patient History Medical History No significant medical problems Social History Smoking Status: Current some day smoker Smoking Status: Current some day smoker tobacco type: vaping alcohol intake frequency: holidays/special occasions only Substance Use Type: does not use Exam Narrative Exam Narrative: GENERAL: Alert and oriented x three, thin, well-appearing female in mild distress. Patient does become tearful at one point stating she is frustrated being here in the department today. HEENT: Head normocephalic, atraumatic, EOMI, pupils reactive, face symmetric, moist mucous membranes NECK: Supple, full range of motion CARDIOVASCULAR: Regular rate and rhythm without murmurs, rubs or gallops. RESPIRATORY: Breath sounds equal bilaterally, no wheezes rales or rhonchi. ABDOMEN: Soft, nontender. Normoactive bowel sounds all 4 quadrants. No guarding or rebound, rigidity, no mass : No CVA tenderness EXTREMITIES: Normal range of motion, no clubbing or edema. Neurovascularly intact NEUROLOGICAL: Cranial nerves II through XII grossly intact. Moving all extremities SKIN: Warm, dry, no petechiae noted, no rashes. Patient does have some small these lesions on her lower extremities on the upper thighs consistent with either ingrown hairs or a keratosis pilaris. There is no erythema, warmth or other skin changes appreciated. Initial Vital Signs Initial Vital Signs: Vital Signs Temperature 98.7 F 08/31/20 19:08 Pulse Rate 69 08/31/20 19:08 Respiratory Rate 18 08/31/20 19:08 Blood Pressure 100/66 08/31/20 19:08 Pulse Oximetry 98 08/31/20 19:08 Course Orders Ordered: ED Orders 08/31/20 19:45 Complete Blood Count AUTO DIFF Stat Comprehensive Metabolic Panel Stat Vital Signs Vital signs: Vital Signs - 8 hr 08/31/20 19:08 Temperature 98.7 F Pulse Rate 69 Respiratory Rate 18 Blood Pressure 100/66 Pulse Oximetry 98 MDM - Headache Lab Data Attestation: I reviewed the patient's lab results. Result diagrams: 08/31/20 19:45 08/31/20 19:45 Labs: Lab Results 08/31/20 08/31/20 Range/Units 19:45 19:45 WBC 4.5 (4.5-11.0) X10^3/uL RBC 4.33 (4.0-5.2) X10^6/uL Hgb 13.0 (12.0-16.0) g/dL Hct 39.6 (36-46) % MCV 91.6 (80-100) fL MCH 30.0 (26-34) PG MCHC 32.7 (30-36) % RDW 12.7 (11.6-14.8) % Plt Count 169 (150-400) X10^3/uL Neut % (Auto) 50.9 (50-75) % Lymph % (Auto) 35.2 (25-40) % [place] % (Auto) 10.5 (3-14) % Eos % (Auto) 2.8 (2-4) % Baso % (Auto) 0.6 (0-2) % Neut # (Auto) 2300 (3560-0441) /uL Lymph # (Auto) 1600 (9207-9572) /uL [place] # (Auto) 500 (0-900) /uL Eos # (Auto) 100 (0-450) /uL Baso # (Auto) 0 (0-100) /uL Sodium 139 (137-145) mmol/L Potassium 3.7 (3.4-5.1) mmol/L Chloride 103 (98-107) mmol/L Carbon Dioxide 28 (22-32) mmol/L BUN 12 (7-17) mg/dL Creatinine 0.49 L (0.52-1.04) mg/dL Estimated GFR > 60.0 (>60) mL/min BUN/Creatinine Ratio 24.5 H (6-22) Glucose 78 (70-100) mg/dL Calcium 9.7 (8.4-10.2) mg/dL Total Bilirubin 0.7 (0.2-1.3) mg/dL AST 25 (14-36) IU/L ALT 15 (<35) IU/L Alkaline Phosphatase 50 (38-126) U/L Total Protein 7.6 (6.3-8.2) g/dL Albumin 4.6 (3.5-5.0) g/dL Globulin 3.0 (1.7-4.1) g/dL Albumin/Globulin Ratio 1.5 (1.0-2.8) Discharge Plan Departure Patient Disposition: Home Clinical Impression: Condition not found Activity Restrictions/Additional Instructions: Your labs today are reassuring. Your platelet count is 169 today, your prior in April of 2020 was 179 and this is he normal range platelet count. Your hemoglobin and white blood cell count are also in normal range. Please return if you have any other new or concerning symptoms, if you have ecchymosis or bruising that occurs spontaneously, spontaneous bleeding, signs of very small bruises such as petechiae, bleeding for your gums, or other spontaneous bleeding. Prescriptions: No Action fluconazole [Diflucan] 150 mg tablet 150 mg PO Q3D Qty: 2 RF: 0 ibuprofen 600 mg tablet 600 mg PO TID PRN (Reason: pain) Qty: 20 RF: 0
[2020-08-31 21:10] VITALS: BP 104/68; PULSE 55; RESP 17; O2SAT 99
== END 2020-08-31 21:10 | disposition home or self-care (01) ==
PROVIDERS: Emergency Provider Emergency Medicine
DX: R51.9 Headache, unspecified (principal)
CPT/HCPCS: 36415; 80053; 85025; 99283

== ENCOUNTER → 2020-09-19 15:36 | Outpatient (CLI) | payer OTHER, MEDICAID, SELFPAY ==
[2020-09-19] MEDS: COVID-19 VACC #2, MRNA(MOD) 100 MCG/0.5 ML VIAL IM (15:43)
== END ==
PROVIDERS: Visit Provider Internal Medicine
DX: Z23 Encounter for immunization (principal)
CPT/HCPCS: 0012A; 91301

== ENCOUNTER → 2020-10-10 07:27 | Outpatient (CLI) | payer OTHER, MEDICAID, SELFPAY | PROVIDERS: Visit Provider Physician Assistant | DX: N34.3 Urethral syndrome, unspecified (principal) | CPT/HCPCS: 87077; 87086; 87186 ==

== ENCOUNTER 2020-10-11 11:55 | Emergency (ER) | payer OTHER, MEDICAID, SELFPAY ==
[2020-10-11] VITALS (8 sets, daily range): BP systolic 89–113; BP diastolic 54–60; PULSE 81–101; RESP 15–24; TEMP 39.1; O2SAT 94–100; BMI 21.1
[2020-10-11 12:59] LABS: Add Manual Diff / Slide Review NO; Basophils Absolute Auto 0 /uL (0-100); Basophils Percent Auto 0.3 % (0-2); Eosinophils Absolute Auto 0 /uL (0-450); Hematocrit 41.3 % (36-46); Hemoglobin 13.5 g/dL (12.0-16.0); Lymphocytes Absolute Auto 900 /uL (1100-4500); Lymphocytes Percent Auto 7.9 % (25-40); Mean Corpuscular HGB Conc 32.8 % (30-36); Mean Corpuscular Hemoglobin 29.8 PG (26-34); Mean Corpuscular Volume 90.9 fL (80-100); Monocytes Absolute Auto 1500 /uL (0-900); Monocytes Percent Auto 13.3 % (3-14); Neutrophils Absolute Auto 9100 /uL (1500-7000); Neutrophils Percent Auto 78.5 % (50-75); Platelet Count 149 X10^3/uL (150-400); Red Blood Cell Count 4.54 X10^6/uL (4.0-5.2); Red Cell Distribution Width 12.6 % (11.6-14.8); White Blood Cell Count 11.6 X10^3/uL (4.5-11.0)
--- NOTE | 2020-10-11 13:02 | ED_ITS ---
HPI - Abdominal Pain General Chief Complaint: Urogenital-Female Stated Complaint: states kidney infection, antibiotics not working Time Seen by Provider: 10/11/20 12:59 Source: patient Mode of arrival: Ambulatory Limitations: no limitations History of Present Illness HPI narrative: Patient is a young 34-year-old female who presents with fever and left flank pain. She has had symptoms of UTI ongoing for about 1 week she was started on Cipro 2 days ago but states that Cipro usually does not work for her. She has culture and sensitivity returning which shows resistant to ciprofloxacin on 07/11/2020 culture from yesterday is not yet returned. She continues with fever of 102 here in the emergency department increased left flank pain. She is noted to be hypotensive is however she states that her blood pressure is normally in the 90s. She has some nausea no significant vomiting no abdominal pain. She generally feels weak and fatigued. MD complaint: flank pain (Left) Onset (ago): day(s) Pain Consistency: constant Radiation: none Migration to: no migration Relieving factors: nothing Related Data Previous Rx's Medication Instructions Recorded ibuprofen 600 mg PO TID PRN #20 tab 04/04/20 fluconazole 150 mg tablet 150 mg PO Q3D #2 tab 07/11/20 ciprofloxacin HCl 500 mg tablet 500 mg PO BID 7 Days #14 tab 10/10/20 phenazopyridine 200 mg tablet 200 mg PO TID 2 Days #6 tab 10/10/20 nitrofurantoin monohyd/m-cryst 100 mg PO BID #14 cap 10/11/20 [Macrobid] Allergies Allergy/AdvReac Type Severity Reaction Status Date / Time amoxicillin [From Augmentin] Allergy Verified 10/11/20 12:01 azithromycin Allergy Verified 10/11/20 12:01 clavulanic acid Allergy Verified 10/11/20 12:01 [From Augmentin] Review of Systems Review of Systems Narrative: GENERAL: + chills, +fatigue, +malaise, +fever HEENT: Denies sinus pain, ear pain, sore throat, difficulty swallowing, neck pain RESPIRATORY: Denies dyspnea, cough, wheezing, hemoptysis, sputum. CARDIOVASCULAR: Denies chest pain, palpitations, orthopnea, edema GASTROINTESTINAL: Denies nausea, vomiting, abdominal pain, diarrhea, constipation, melena. : See HPI MUSCULOSKELETAL: Denies weakness, joint pain, or bony pain SKIN: No rash, no erythema, no pruritus NEUROLOGIC: Denies weakness, dizziness, headache, numbness, change in speech, confusion PSYCHIATRIC: No concerning psychosocial issues. 12 point review of systems is negative except for those stated above and HPI Patient History Medical History No significant medical problems Social History Smoking Status: Current some day smoker Smoking Status: Current some day smoker tobacco type: vaping alcohol intake frequency: holidays/special occasions only Substance Use Type: does not use Exam Initial Vital Signs Initial Vital Signs: Vital Signs Temperature 102.4 F H 10/11/20 12:00 Pulse Rate 101 H 10/11/20 12:00 Respiratory Rate 15 10/11/20 12:00 Blood Pressure 89/54 L 10/11/20 12:00 Pulse Oximetry 100 10/11/20 12:00 GENERAL: 34-year-old female appears well and in no acute distress. HEENT: Head atraumatic,EOMI, pupils reactive, face symmetric, moist mucous membranes CARDIOVASCULAR: Regular rate and rhythm without murmurs, rubs or gallops. RESPIRATORY: Breath sounds equal bilaterally, no wheezes rales or rhonchi. ABDOMEN: Soft, nontender. Normoactive bowel sounds all 4 quadrants. No guarding or rebound : Mild left CVA tenderness EXTREMITIES: Normal range of motion, no clubbing or edema. Neurovascularly intact NEUROLOGICAL: Alert and oriented x4.Normal gait and speech. SKIN: Warm, dry, no laceration, no petechiae, no rashes or lesions. Course Orders Ordered: ED Orders 10/11/20 12:06 RT Consult Eval and Treat Now 10/11/20 12:31 EKG-12 Lead Stat 10/11/20 12:40 Blood Culture Stat Complete Blood Count AUTO DIFF Stat Comprehensive Metabolic Panel Stat Lipase Stat Partial Thromboplastin Time Stat Procalcitonin Stat Prothrombin Time INR Stat 10/11/20 12:53 Lactate (Lactic Acid) Stat 10/11/20 12:58 Ictotest Urine Stat Urine Microscopic Stat Discontinued Medications Sodium Chloride (Normal Saline 0.9%) 1,000 mls @ 1,000 mls/hr IV BOLUS ONE Stop: 10/11/20 13:04 Last Infusion: 10/11/20 14:47 Dose: 0 mls/hr Documented by: Admin: 10/11/20 13:06 Dose: 1,000 mls/hr Documented by: SHANTELLE Sodium Chloride (Normal Saline 0.9%) 1,000 mls @ 1,000 mls/hr IV BOLUS ONE Stop: 10/11/20 14:08 Last Admin: 10/11/20 13:32 Dose: Not Given Documented by: SHANTELLE Ceftriaxone Sodium/Dextrose (Rocephin) 1 gm in 50 mls @ 100 mls/hr IV NOW ONE Stop: 10/11/20 13:38 Last Infusion: 10/11/20 14:46 Dose: 0 mls/hr Documented by: Admin: 10/11/20 13:33 Dose: 100 mls/hr Documented by: SHANTELLE Ketorolac Tromethamine (Ketorolac 30 Mg/Ml Vial) 15 mg IV NOW ONE Stop: 10/11/20 13:10 Last Admin: 10/11/20 13:30 Dose: 15 mg Documented by: SHANTELLE Ondansetron HCl (Ondansetron 4 Mg/2 Ml Inj) 4 mg IV NOW ONE Stop: 10/11/20 13:10 Last Admin: 10/11/20 13:29 Dose: 4 mg Documented by: SHANTELLE Vital Signs Vital signs: Vital Signs - 8 hr 10/11/20 12:00 10/11/20 12:34 10/11/20 12:49 Temperature 102.4 F H Pulse Rate 101 H 98 H 95 H Respiratory Rate 15 22 19 Blood Pressure 89/54 L 113/60 Pulse Oximetry 100 99 99 10/11/20 13:00 10/11/20 13:30 10/11/20 14:00 Temperature Pulse Rate 92 H 90 87 Respiratory Rate 22 22 24 Blood Pressure 105/57 L 104/58 L 100/56 L Pulse Oximetry 100 99 94 10/11/20 14:30 10/11/20 15:00 Temperature Pulse Rate 87 81 Respiratory Rate 23 19 Blood Pressure 94/55 L 92/60 Pulse Oximetry 94 98 MDM - Abdominal Pain Lab Data Attestation: I reviewed the patient's lab results. Result diagrams: 10/11/20 12:40 10/11/20 12:40 Labs: Lab Results 05/10/11/20 10/11/20 Range/Units 12:40 12:40 12:40 WBC 11.6 H (4.5-11.0) X10^3/uL RBC 4.54 (4.0-5.2) X10^6/uL Hgb 13.5 (12.0-16.0) g/dL Hct 41.3 (36-46) % MCV 90.9 (80-100) fL MCH 29.8 (26-34) PG MCHC 32.8 (30-36) % RDW 12.6 (11.6-14.8) % Plt Count 149 L (150-400) X10^3/uL Neut % (Auto) 78.5 H (50-75) % Lymph % (Auto) 7.9 L (25-40) % [place] % (Auto) 13.3 (3-14) % Eos % (Auto) 0.0 L (2-4) % Baso % (Auto) 0.3 (0-2) % Neut # (Auto) 9100 H (4623-6986) /uL Lymph # (Auto) 900 L (6689-9308) /uL [place] # (Auto) 1500 H (0-900) /uL Eos # (Auto) 0 (0-450) /uL Baso # (Auto) 0 (0-100) /uL PT 18.0 H (10.1-12.7) SECONDS INR 1.6 H (0.9-1.3) APTT 32 (26.4-36.2) SECONDS Sodium 134 L (137-145) mmol/L Potassium 3.7 (3.4-5.1) mmol/L Chloride 97 L (98-107) mmol/L Carbon Dioxide 29 (22-32) mmol/L BUN 10 (7-17) mg/dL Creatinine 0.70 (0.52-1.04) mg/dL Estimated GFR > 60.0 (>60) mL/min BUN/Creatinine Ratio 14.3 (6-22) Glucose 116 H (70-100) mg/dL Lactate (0.7-2.1) mmol/L Calcium 9.2 (8.4-10.2) mg/dL Total Bilirubin 2.3 H (0.2-1.3) mg/dL AST 17 (14-36) IU/L ALT 11 (<35) IU/L Alkaline Phosphatase 45 (38-126) U/L Total Protein 7.8 (6.3-8.2) g/dL Albumin 4.4 (3.5-5.0) g/dL Globulin 3.4 (1.7-4.1) g/dL Albumin/Globulin Ratio 1.3 (1.0-2.8) Lipase 61 (23-300) U/L Procalcitonin 0.12 (<0.5) ng/mL Ur Bilirubin Confirm (Negative) Urine RBC (0-5/HPF) Urine WBC (0-5/HPF) Ur Squamous Epith Cells (0-5/HPF) Urine Bacteria (None) Ur Culture Indicated? Micro UA Comment 10/11/20 10/11/20 Range/Units 12:53 12:58 WBC (4.5-11.0) X10^3/uL RBC (4.0-5.2) X10^6/uL Hgb (12.0-16.0) g/dL Hct (36-46) % MCV (80-100) fL MCH (26-34) PG MCHC (30-36) % RDW (11.6-14.8) % Plt Count (150-400) X10^3/uL Neut % (Auto) (50-75) % Lymph % (Auto) (25-40) % [place] % (Auto) (3-14) % Eos % (Auto) (2-4) % Baso % (Auto) (0-2) % Neut # (Auto) (6111-5797) /uL Lymph # (Auto) (8160-2491) /uL [place] # (Auto) (0-900) /uL Eos # (Auto) (0-450) /uL Baso # (Auto) (0-100) /uL PT (10.1-12.7) SECONDS INR (0.9-1.3) APTT (26.4-36.2) SECONDS Sodium (137-145) mmol/L Potassium (3.4-5.1) mmol/L Chloride (98-107) mmol/L Carbon Dioxide (22-32) mmol/L BUN (7-17) mg/dL Creatinine (0.52-1.04) mg/dL Estimated GFR (>60) mL/min BUN/Creatinine Ratio (6-22) Glucose (70-100) mg/dL Lactate 1.0 (0.7-2.1) mmol/L Calcium (8.4-10.2) mg/dL Total Bilirubin (0.2-1.3) mg/dL AST (14-36) IU/L ALT (<35) IU/L Alkaline Phosphatase (38-126) U/L Total Protein (6.3-8.2) g/dL Albumin (3.5-5.0) g/dL Globulin (1.7-4.1) g/dL Albumin/Globulin Ratio (1.0-2.8) Lipase (23-300) U/L Procalcitonin (<0.5) ng/mL Ur Bilirubin Confirm Negative (Negative) Urine RBC 1-5/hpf (0-5/HPF) Urine WBC 10-30/hpf H (0-5/HPF) Ur Squamous Epith Cells 5-10 /hpf H (0-5/HPF) Urine Bacteria Many (>30) H (None) Ur Culture Indicated? Cult not indicated Micro UA Comment Point of care testing: Point of Care Testing Test Results Negative Urine Dip Bedside Urine Glucose Negative Bedside Urine Bilirubin + 1 Bedside Urine Ketone - Negative Urine Specific [place] 1.015 Bedside Urine Occult Blood +/- Bedside Urine pH 6.5 Bedside Urine Protein +/- 15 Bedside Urine Urobilinogen 2+ 4mg Bedside Urine Nitrite + Positive Bedside Urine Leukocytes +/- 15 Esterase ECG Data Attestation: I personally reviewed and interpreted this ECG as follows: Interpretation: Sinus rhythm rate 94 p.r. interval 130 QRS [address] changes T-wave inversion [facility] Narrative Medical decision making narrative: Patient has mild leukocytosis with right flank pain with obvious UTI and pyelonephritis. She states that her normal blood pressure is in the 90s it does improve with IV fluids. She is given 1 dose of IV Rocephin she has an allergy to penicillins. She also is complaining of a mild headache which she says she frequently gets when she is on Cipro. Her headache pain improved with Toradol. She has no meningeal signs and no focal deficits. Will start her on Macrobid and await cultures. Prior culture in 07/11/2020 actually does show resistance to Rocephin and multiple other drugs but sensitivity to Macrobid. Discharge Plan Departure Patient Disposition: Home Clinical Impression: UTI (urinary tract infection) Qualifiers: Urinary tract infection type: acute pyelonephritis Qualified Code(s): N10 - Acute pyelonephritis Instructions: DI for Kidney Infection Activity Restrictions/Additional Instructions: *You have been diagnosed with pyelonephritis *What to do: Increase fluid intake *Continue to take medications as directed Stop taking Cipro Keflex 500 mg 2 times a day for 7 days--> SENT TO [facility] *Follow up with your primary care provider in 2-3 days *Return to ER if you should have increasing fever, back pain, or any new, worsening or concerning symptoms Prescriptions: New nitrofurantoin monohyd/m-cryst [Macrobid] 100 mg capsule 100 mg PO BID Qty: 14 RF: 0 No Action fluconazole [Diflucan] 150 mg tablet 150 mg PO Q3D Qty: 2 RF: 0 ciprofloxacin HCl 500 mg tablet 500 mg PO BID 7 Days Qty: 14 RF: 0 phenazopyridine [Pyridium] 200 mg tablet 200 mg PO TID 2 Days Qty: 6 RF: 0 ibuprofen 600 mg tablet 600 mg PO TID PRN (Reason: pain) Qty: 20 RF: 0 Referrals: [facility] [Outside] Miscellaneous,Doctor, [Primary Care Provider] -
[2020-10-11 13:04] LABS: INR 1.6 (0.9-1.3)
[2020-10-11 13:06] LABS: PTT Partial Thromboplastin Tim 32 SECONDS (26.4-36.2)
[2020-10-11] MEDS: SODIUM CHLORIDE 0.9% 1,000 ML 1000 ML IV (13:06)
[2020-10-11 13:08] LABS: Alanine Aminotransferase 11 IU/L (<35); Albumin 4.4 g/dL (3.5-5.0); Albumin Globulin Ratio 1.3 (1.0-2.8); Alkaline Phosphatase 45 U/L (38-126); Aspartate Aminotransferase 17 IU/L (14-36); BUN Creatinine Ratio 14.3 (6-22); Bilirubin Total 2.3 mg/dL (0.2-1.3); Blood Urea Nitrogen 10 mg/dL (7-17); Calcium 9.2 mg/dL (8.4-10.2); Carbon Dioxide 29 mmol/L (22-32); Chloride 97 mmol/L (98-107); Estimated Glomerular Filt Rate > 60.0 mL/min (>60); Globulin 3.4 g/dL (1.7-4.1); Glucose 116 mg/dL (70-100); HEMOLYSIS < 15 (0-50); Lipase 61 U/L (23-300); Potassium 3.7 mmol/L (3.4-5.1); Sodium 134 mmol/L (137-145); Total Protein 7.8 g/dL (6.3-8.2)
[2020-10-11 13:25] LABS: Procalcitonin 0.12 ng/mL (<0.5)
[2020-10-11] MEDS: ONDANSETRON 4 MG/2 ML INJ IV (13:29)
[2020-10-11] MEDS: KETOROLAC 30 MG/ML VIAL 15 MG IV (13:30)
[2020-10-11] MEDS: CEFTRIAXONE 1 GM/50 ML FROZ.PIGGY IV (13:33)
[2020-10-11 13:45] LABS: Ictotest Urine Negative (Negative); RBC Urine 1-5/HPF (0-5/HPF); Squamous Epithelial Cell Urine 5-10 /HPF (0-5/HPF); WBC Urine 10-30/HPF (0-5/HPF)
[2020-10-11 13:46] LABS: Bacteria Urine Many (>30)
[2020-10-11 13:47] LABS: Culture Indicated Urine Cult Not Indicated
== END 2020-10-11 15:24 | disposition home or self-care (01) ==
PROVIDERS: Emergency Provider Emergency Medicine
DX: N10 Acute pyelonephritis (principal); N39.0 Urinary tract infection, site not specified; R10.9 Unspecified abdominal pain
CPT/HCPCS: 36415; 80053; 81003; 81015; 81025; 83605; 83690; 84145; 85025; 85610; 85730; 87040; 93005; 93010; 96365; 96375; 99284; J1885; J2405

== ENCOUNTER → 2022-04-30 19:05 | Outpatient (CLI) | payer OTHER, MEDICAID, SELFPAY ==
[2022-04-30 20:26] LABS: Influenza A - CEPHEID Flu A NEGATIVE (NEGATIVE); Influenza B - CEPHEID Flu B NEGATIVE (NEGATIVE); Respiratory Syncytial Virus Negative (Negative)
[2022-04-30 20:27] LABS: COVID-19 CEPHEID 4-PLEX PCR Negative (Negative)
== END ==
PROVIDERS: Visit Provider Nurse Practitioner Family
DX: R09.81 Nasal congestion (principal); Z20.822 Contact with and (suspected) exposure to COVID-19
CPT/HCPCS: 0241U

== ENCOUNTER → 2023-02-09 07:51 | Outpatient (CLI) | payer OTHER, MEDICAID, SELFPAY ==
[2023-02-09 08:34] LABS: COVID-19 CEPHEID 4-PLEX PCR Negative (Negative); Influenza A - CEPHEID Flu A NEGATIVE (NEGATIVE); Influenza B - CEPHEID Flu B NEGATIVE (NEGATIVE); Respiratory Syncytial Virus Negative (Negative)
== END ==
PROVIDERS: Visit Provider Physician Assistant
DX: R05.9 Cough, unspecified (principal); R09.81 Nasal congestion; R51.9 Headache, unspecified; R53.81 Other malaise; R53.83 Other fatigue; Z20.822 Contact with and (suspected) exposure to COVID-19
CPT/HCPCS: 0241U; C9803

== ENCOUNTER 2024-03-23 19:09 | Emergency (ER) | payer OTHER, SELFPAY ==
[2024-03-23 19:43] VITALS: BP 127/75; PULSE 76; RESP 18; TEMP 36.6; O2SAT 99
--- NOTE | 2024-03-24 01:50 | ED.RECABL ---
HPI - Recheck/Abnormal Lab/Rx General Chief Complaint: Recheck/Abnormal Lab/Rx Stated Complaint: exploding head episodes bipolar insomnia Source: patient Mode of arrival: Ambulatory History of Present Illness HPI narrative: Patient left without being seen by provider Related Data Previous Rx's Medication Instructions Recorded ibuprofen 600 mg tablet 600 mg PO TID PRN pain #20 tabs 04/04/20 sumatriptan succinate 50 mg tablet See Rx Instructions PO .COMPLEX #2 01/23/23 tabs Allergies Allergy/AdvReac Type Severity Reaction Status Date / Time Benzodiazepines Allergy Unknown unknown Verified 03/23/24 19:52 amoxicillin [From Augmentin] Allergy Verified 03/23/24 19:52 azithromycin Allergy Verified 03/23/24 19:52 clavulanic acid Allergy Verified 03/23/24 19:52 [From Augmentin] ketamine Allergy unknown Verified 03/23/24 19:52 naval oranges Allergy Severe Anaphylaxis Uncoded 03/23/24 19:52 Patient History Medical History No significant medical problems Social History Smoking Status: Current some day smoker Smoking Status: Current some day smoker tobacco type: vaping alcohol intake frequency: holidays/special occasions only Substance Use Type: does not use Exam Initial Vital Signs Initial Vital Signs: Vital Signs Temperature 98 F 03/23/24 19:43 Pulse Rate 76 03/23/24 19:43 Respiratory Rate 18 03/23/24 19:43 Blood Pressure 127/75 03/23/24 19:43 Pulse Oximetry 99 03/23/24 19:43 Oxygen Delivery Method Room Air 03/23/24 19:43 Course Vital Signs Vital signs: Vital Signs - 8 hr 03/23/24 19:43 Temperature 98 F Pulse Rate 76 Respiratory Rate 18 Blood Pressure 127/75 Pulse Oximetry 99 Oxygen Delivery Method Room Air Discharge Plan Departure Patient Disposition: Left Without Being Seen Clinical Impression: Patient left after triage Prescriptions: No Action sumatriptan succinate 50 mg tablet See Rx Instructions PO .COMPLEX Qty: 2 0RF Rx Instructions: take 1 tab at onset of headache; if no relief may repeat 1 tab after at least 2 hrs ibuprofen 600 mg tablet 600 mg PO TID PRN (Reason: pain) Qty: 20 0RF Stand Alone Forms: Patient Portal/API
== END 2024-03-23 19:57 | disposition left against medical advice (07) ==
PROVIDERS: Emergency Provider Emergency Medicine
CPT/HCPCS: 99281

== ENCOUNTER → 2024-07-19 17:56 | Outpatient (CLI) | payer OTHER, SELFPAY ==
[2024-07-19 20:27] LABS: Urine N gonorrhoeae NOT DETECTED
[2024-07-19 20:38] LABS: Urine Chlamydia NOT DETECTED
== END ==
PROVIDERS: Visit Provider Student in an Organized Health Care Education/Training Program
DX: N89.8 Other specified noninflammatory disorders of vagina (principal); R30.0 Dysuria; Z11.3 Encounter for screening for infections with a predominantly sexual mode of transmission
CPT/HCPCS: 87086; 87210; 87491; 87591